=== PATIENT | male | born 1995 | race Caucasian/White ===

== ENCOUNTER 2017-12-26 15:50 | Emergency (ER) | payer MEDICAID ==
--- NOTE | 2017-12-26 16:38 | ED Physician Chart ---
ED Chief Complaint/HPI - Patient Information Date Seen:: 12/26/17 Time Seen:: 16:00 Chief Complaint:: Red Eyes History of Present Illness:: onset x 3 days of bilateral painless, irritated red eyes; pt denies trauma, ocular/eye pain, decreased vision, visual changes, diplopia, FB sensation, ocular discharge, or FB exposure; pt's last tetanus shot: < 5 years; UTD; pt denies LOC, ALOC, AMS, H/As, E/As, S/T, neck pain, C/P, SOB, cough, Abd. Pain, A /N/V/D/C, fever, chills, or urinary s/s Allergies:: Allergies Allergy/AdvReac Type Severity Reaction Status Date / Time No Known Allergies Allergy Verified 12/26/17 16:00 Vitals:: Vital Signs - 8 hr 12/26/17 16:00 Temp 97.5 F HR 77 RR 15 BP 122/77 O2 Sat % 98 Historian:: Patient Review:: Nurse's Note Reviewed ED Review of Systems - Review of Systems General/Constitutional: No fever, No chills, No weight loss, No weakness, No diaphoresis, No edema, No loss of appetite Skin: No skin lesions, No rash, No bruising Head: No headache, No light-headedness Eyes: No loss of vision, No pain, No diplopia, Other (Red Eyes) ENT: No earache, No nasal drainage, No sore throat, No tinnitus Neck: No neck pain, No swelling, No thyromegaly, No stiffness, No mass noted Cardio Vascular: No chest pain, No palpitations, No PND, No orthopnea, No edema Pulmonary: No SOB, No cough, No sputum, No wheezing GI: No nausea, No vomiting, No diarrhea, No pain, No melena, No hematochezia, No constipation, No hematemesis G/U: No dysuria, No frequency, No hematuria, No nacturia Musculoskeletal: No bone or joint pain, No back pain, No muscle pain Endocrine: No polyuria, No polydipsia Psychiatric: No prior psych history, No depression, No anxiety, No suicidal ideation, No homicidal ideation, No auditory hallucination, No visual hallucination Hematopoietic: No bruising, No lymphadenopathy Allergic/Immuno: No urticaria, No angioedema Neurological: No syncope, No focal symptoms, No weakness, No paresthesia, No headache, No seizure, No dizziness, No confusion, No vertigo ED Past Medical History - Past Medical History Obtainable: Yes Past Medical History: ESRD Family History: HTN Social History: Non Smoker, No Alcohol, No Drug Use, Single, Lives With Parents Surgical History: other (Kidney/Renal Transplant Surgery) Psychiatricy History: None Medication: Reviewed Family Medical History - Family Member Mother Living Status: Still Living Other Medical History: no med. prob. ED Physical Exam - Physical Examination General/Constitutional: Awake, Well-developed, well-nourished, Alert, No distress, GCS 15, Non-toxic appearing, Ambulatory Head: Atraumatic Eyes: Lids, conjuctiva normal, PERRL, EOMI Other Eyes comments:: Eye Exam: Va: 20/25 OU; + Bilateral Conjunctival Injection, OU; no FBs; Corneas : Clear; no FBs; no abrasions; no hyphemas; IOP: 16 OU; no ocular discharge; PERRLA; Fundi: benign; EOMs: WNL; LLL: WNL + SCHs OU; no FBs Skin: Nl inspection, No rash, No skin lesions, No ecchymosis, Well hydrated, No lymphadenopathy ENMT: External ears, nose nl, TM canals nl, Nasal exam nl, Lips, teeth, gums nl , Oropharynx nl, Tonsils nl Other ENMT comments:: TMJs: WNL Neck: Nontender, Full ROM w/o pain, No JVD, No nuchal rigidity, No bruit, No mass, No stridor Other Neck comments:: supple; no meningeal signs; no cervical tenderness; no bruits Respiratory: Nl effort/Exclusion, Clear to Auscultation, No Wheeze/Rhonchi/Rales Cardio Vascular: RRR, No murmur, gallop, rubs, NL S1 S2, Carotid/Femoral/Distal pulses equal bilaterally GI: No tenderness/rebounding/guarding, No organomegaly, No hernia, Normal BS's, Nondistended, No mass/bruits, No McBurney tenderness Other GI comments:: no pulsatile masses : No CVA tenderness Extremities: No tenderness or effusion, Full ROM, normal strength in all extremities, No edema, Normal digits & nails Neuro/Psych: Alert/oriented, DTR's symmetric, Normal sensory exam, Normal motor strength, Judgement/insight normal, Mood normal, Normal gait, No focal deficits Other Neuro/Psych comments:: no focal signs Misc: Normal back, No paraspinal tenderness ED Septic Shock - . Is Septic Shock (SBP<90, OR Lactate>4 mmol\L) present?: No - <6hrs of presentation: Vital Signs: Vital Signs - 8 hr 12/26/17 16:00 Temp 97.5 F HR 77 RR 15 BP 122/77 O2 Sat % 98 ED Reassessment (Disposition) - Reassessment Reassessment:: pt is asymptomatic upon discharge Reassessment Condition:: Improved - Diagnosis Diagnosis:: Dx: Subconjunctival Hemorrhages; Conjunctivitis; Red Eyes; Eye Infection - Aftercare/Follow up Instructions Aftercare/Follow-Up Instructions:: Counseled pt regarding lab results/diagnosis & need follow up, Refer to Discharge Instructions, Counseled pt & family regarding lab results/diagnosis & need follow up Medication Prescribed:: Rx: Tobramycin Ophthalmic Eye Drops: one drop OU qid x 7 days; Eye Care Instructions - Patient Disposition Discharge/Transfer:: Home Condition at Disposition:: Stable, Improved (RTER prn if existing s/s reoccur and/or get worse and/or any other new s/s occur; ACIs given for all above Dx; Refer to [employer] Clerk REBECCA; Refer to [employer]arrowing Worker REBECCA; F/U with PMD in one day or prn; RTER prn if concerned) ED Discharge Plan - Patient Disposition Admit/Discharge/Transfer: PT DISCHARGED HOME Condition at Disposition: Stable Prescriptions: Tobramycin 0.3% Ophth Soln [Tobrex 0.3% Ophth Soln] 1 drop EACH EYE QID #1 Instructions: Conjunctivitis (Viral and Bacterial) Forms: Work Release Form
== END 2017-12-26 16:28 | disposition home or self-care (01) ==
LOC: ER 15:50
DX: H11.33 Conjunctival hemorrhage, bilateral (principal); H10.9 Unspecified conjunctivitis; N18.6 End stage renal disease
CPT/HCPCS: Z7502